=== PATIENT | male | born 1930 | race Caucasian/White ===

== ENCOUNTER 2018-10-29 12:38 | Emergency (ER) | payer BC ==
[~2018-10-29] VITALS: Ht 157.5 cm; Wt 63.5 kg
--- NOTE | 2018-10-29 12:38 | NUR ---
Patient triaged and placed in waiting room. VSS and patient appears in no acute distress at this time. Accompanied by , awaiting available bed, and MD notified of need for MSE.
[2018-10-29 12:40] VITALS: BP_SYST 133
--- NOTE | 2018-10-29 13:48 | NUR ---
LUNA SHRESTHA examining patient.
--- NOTE | 2018-10-29 13:50 | NUR ---
PATIENT CAME IN COMPLAINING OF DRY COUGH SINCE MONDAY. PATIENT ALSO COMPLAINING OF WATERY EYES AND RUNNY NOSE. PATIENT COMPLAINING OF BODY ACHES AND SORE THROAT. PATIENT COMPLAINING OF PAIN IN CHEST WHEN COUGHING. PATIENT NOT COMPLAINING OF NAUSEA OF VOMITING. PATIENT NOT COMPLAINING OF SOB. PATIENT ALERT AND ORIENTED X4.
[2018-10-29] MEDS ORDERED: IPRATROPIUM/ALBUTEROL SULFATE 3 ML AMPUL.NEB (DUONEB) INH ONE (14:00)
--- NOTE | 2018-10-29 14:12 | NUR ---
# 18 gauge angiocath placed to left ac. Use of asceptic technique. Opsite placed over site. Blood return noted. Blood for lab drawn from site. Flushed with 10 cc of normal saline. No evidence of infiltration noted. Patient tolerated well.
--- NOTE | 2018-10-29 14:20 | NUR ---
PATIENT GETTING X RAY IN BED.
[2018-10-29 14:24] LABS: BASOPHILS % (AUTO) 0.5 % (0.0-2.0); EOSINOPHILS # (AUTO) 0.1 K/uL (0.0-0.4); EOSINOPHILS % (AUTO) 0.7 % (0.0-4.0); HEMATOCRIT 39.2 % (36-54); HEMOGLOBIN 12.9 g/dL (14.0-18.0); LYMPHOCYTES # (AUTO) 0.8 K/uL (1.0-5.5); LYMPHOCYTES % (AUTO) 9.3 % (20.5-51.5); MEAN CORPUSCULAR HEMOGLOBIN 32 pg (27-31); MEAN CORPUSCULAR HGB CONC 33 % (32-36); MEAN CORPUSCULAR VOLUME 96 fL (79.0-98.0); MONOCYTES # (AUTO) 0.8 K/uL (0.0-1.0); MONOCYTES % (AUTO) 9.1 % (1.7-9.3); NEUTROPHILS # (AUTO) 6.9 K/uL (1.8-7.7); NEUTROPHILS % (AUTO) 80.4 % (40.0-70.0); PLATELET COUNT (AUTO) 138 K/uL (130-430); RED CELL DISTRIBUTION WIDTH 14.6 % (9.0-15.0); WHITE BLOOD COUNT (AUTO) 8.6 K/uL (4.8-10.8)
[2018-10-29 14:37] LABS: PROTHROMBIN TIME 10.7 SECS (9.5-12.5)
[2018-10-29 14:48] LABS: ANION GAP 9 (5-15); CHLORIDE 107 mmol/L (98-107); CREATININE 1.34 mg/dL (0.55-1.30); GLUCOSE 101 mg/dL (70-99); POTASSIUM 3.9 mmol/L (3.5-5.1); SODIUM SERUM 138 mmol/L (136-145); UREA NITROGEN, BLOOD 23 mg/dL (8-21)
[2018-10-29 14:50] LABS: ALANINE AMINOTRANSFERASE 19 U/L (12-78); ALBUMIN 3.6 g/dL (3.4-4.8); ASPARTATE AMINOTRANSFERASE 15 U/L (10-37); TOTAL BILIRUBIN 0.9 mg/dL (0.0-1.0)
[2018-10-29 15:14] LABS: BILIRUBIN,URINE NEGATIVE (NEGATIVE); BLOOD, URINE 1+ (NEGATIVE); CLARITY/URINE CLEAR (CLEAR); COLOR,URINE YELLOW (YELLOW); GLUCOSE,URINE NEGATIVE (NEGATIVE); KETONES,URINE NEGATIVE (NEGATIVE); LEUKOCYTE ESTERASE ,URINE NEGATIVE (NEGATIVE); NITRITE, URINE NEGATIVE (NEGATIVE); PROTEIN URINE NEGATIVE (NEGATIVE); UROBILINOGEN,URINE 0.2 (0.2-1.0)
--- NOTE | 2018-10-29 15:24 | NUR ---
Patient moved to bed 8
[2018-10-29 15:25] LABS: BACTERIA,URINE RARE /HPF (None Seen); RBC,URINE 0-3 /HPF (0-3); WBC,URINE 0-3 /HPF (0-3)
[2018-10-29 15:26] LABS: MUCUS,URINE None Seen /LPF (None Seen)
[2018-10-29 16:06] VITALS: BP_SYST 128
--- NOTE | 2018-10-29 16:09 | NUR ---
Patient given written and verbal discharge instructions and verbalizes understanding. ER MD Vizcaino discussed with patient the results and treatment provided. Patient in stable condition. ID arm band removed. IV catheter removed intact and dressing applied, no active bleeding. Rx of Tylenol , Tessalon Perles, Albuterol, Erythromycin, Promethazine given. Patient educated on pain management and to follow up with PMD. Pain Scale 0. Opportunity for questions provided and answered. Medication side effect fact sheet provided.
--- NOTE | 2018-10-29 17:20 | NUR ---
ENDORSED CARE TO JEAN-PIERRE ROWAN.
== END 2018-10-29 17:20 | disposition home or self-care (01) ==
LOC: EDSEX 12:38 → SED 12:38
DX: J06.9 Acute upper respiratory infection, unspecified (principal); H10.9 Unspecified conjunctivitis; I51.7 Cardiomegaly; I10 Essential (primary) hypertension; R79.9 Abnormal finding of blood chemistry, unspecified; E78.5 Hyperlipidemia, unspecified; Z86.73 Personal history of transient ischemic attack (TIA), and cerebral infarction without residual deficits
CPT/HCPCS: 36415; 71045; 80053; 81000; 84484; 85025; 85610; 85730; 86710; 93005; 94640; 99284; J7620

== ENCOUNTER 2019-12-27 18:39 | Emergency (ER) | payer BC ==
[~2019-12-27] VITALS: Ht 152.4 cm; Wt 67.1 kg
[2019-12-27 18:48] VITALS: BP_SYST 147
[2019-12-27] MEDS ORDERED: ACETAMINOPHEN 500 MG TABLET PO ONE (20:15)
[2019-12-27 22:45] LABS: BASOPHILS % (AUTO) 0.6 % (0.0-2.0); EOSINOPHILS # (AUTO) 0.1 K/uL (0.0-0.4); EOSINOPHILS % (AUTO) 1.5 % (0.0-4.0); HEMATOCRIT 39.8 % (36-54); HEMOGLOBIN 12.7 g/dL (14.0-18.0); LYMPHOCYTES % (AUTO) 16.1 % (20.5-51.5); MEAN CORPUSCULAR HEMOGLOBIN 31 pg (27-31); MEAN CORPUSCULAR HGB CONC 32 % (32-36); MEAN CORPUSCULAR VOLUME 97 fL (79.0-98.0); MONOCYTES # (AUTO) 0.9 K/uL (0.0-1.0); MONOCYTES % (AUTO) 13.5 % (1.7-9.3); NEUTROPHILS # (AUTO) 4.4 K/uL (1.8-7.7); NEUTROPHILS % (AUTO) 68.3 % (40.0-70.0); PLATELET COUNT (AUTO) 134 K/uL (130-430); RED BLOOD CELL COUNT(AUTO) 4.08 MIL/uL (4.2-6.2); RED CELL DISTRIBUTION WIDTH 14.6 % (9.0-15.0); WHITE BLOOD COUNT (AUTO) 6.5 K/uL (4.8-10.8)
[2019-12-27 22:48] LABS: ANION GAP 12 (5-15); CALCIUM 9.2 mg/dL (8.4-11.0); CHLORIDE 107 mmol/L (98-107); CREATININE 1.84 mg/dL (0.55-1.30); GLUCOSE 120 mg/dL (70-99); POTASSIUM 4.1 mmol/L (3.5-5.1); SODIUM SERUM 141 mmol/L (136-145); UREA NITROGEN, BLOOD 30 mg/dL (8-21)
[2019-12-27 23:15] VITALS: BP_SYST 147
== END 2019-12-27 23:15 | disposition home or self-care (01) ==
LOC: SED 18:39
DX: S22.41XA Multiple fractures of ribs, right side, initial encounter for closed fracture (principal); N28.9 Disorder of kidney and ureter, unspecified; I10 Essential (primary) hypertension; E78.5 Hyperlipidemia, unspecified; Z86.73 Personal history of transient ischemic attack (TIA), and cerebral infarction without residual deficits; W01.0XXA Fall on same level from slipping, tripping and stumbling without subsequent striking against object, initial encounter; Y93.89 Activity, other specified; Y92.89 Other specified places as the place of occurrence of the external cause; Y99.8 Other external cause status
CPT/HCPCS: 36415; 70450-TC; 71045; 71100; 72125-TC; 80048; 85025; 93005; 99285